=== PATIENT | female | born 1960 | race Caucasian/White ===

== ENCOUNTER 2024-10-03 12:22 | Outpatient (CLI) | payer OTHER ==
--- NOTE | 2024-10-03 15:35 | RADIOLOGY REPORT ---
PROCEDURE: MR MRI THORACIC SPINE INDICATION: SPINAL STENOSIS, THORACIC REGION,SPINAL STENOSIS, Exam Date: 10/03/2024 01:04 PM COMPARISON: None TECHNIQUE: MRI thoracic spine without intravenous contrast. FINDINGS: The thoracic alignment is intact. The vertebral body heights are intact. Postsurgical changes midth oracic spine. There are degenerative endplate changes with anterior and lateral osteophytes mid to lo wer thoracic levels. The thoracic cord signal and contour appear intact. Small disc bulges and facet arthropathy mid to lower thoracic levels. No significant central canal or neural foraminal stenosis. The visualized paraspinal soft tissues are otherwise unremarkable. IMPRESSION: 1. Postsurgical changes midthoracic spine. Mild degenerative disease. No significant central canal o r neural foraminal stenosis. 2. Intact thoracic cord signal. No evidence of cord compression. HS:Y
--- NOTE | 2024-10-03 15:41 | RADIOLOGY REPORT ---
PROCEDURE: MR MRI C SPINE INDICATION: SPINAL STENOSIS, THORACIC REGION,SPINAL STENOSIS, EXAM DATE: 10/03/2024 01:04 PM COMPARISON: None TECHNIQUE: MRI cervical spine without intravenous contrast. FINDINGS: Grade 1 anterolisthesis of C7 on T1. There are degenerative endplate changes with anterior osteophy feliz mid to lower cervical levels. The visualized posterior fossa and craniocervical junction are inta ct. Suspect mild abnormal cord signal C6-7. There is no prevertebral soft tissue swelling. The vis ualized paraspinal soft tissues are otherwise unremarkable. The following axial levels are detailed below: C2-C3: Mild posterior disc osteophyte complex complicated by facet arthropathy associated with mild to moderate right neural foraminal stenosis. No significant central canal stenosis. C3-C4: Mild posterior disc osteophyte complex complicated by facet arthropathy associated with mod erate to severe bilateral neural foraminal stenosis. No significant central canal stenosis. C4-C5: Mild posterior disc osteophyte complex complicated by facet arthropathy associated with mild to moderate bilateral neural foraminal stenosis. No significant central canal stenosis. C5-C6: Moderate posterior disc osteophyte complex complicated by facet arthropathy associated with moderate to severe left neural foraminal stenosis. Central canal measures 9 mm. C6-C7: Moderate posterior disc osteophyte complex complicated by facet arthropathy associated with moderate to severe bilateral neural foraminal stenosis. Central canal measures 7 mm. C7-T1: Moderate posterior disc osteophyte complex complicated by facet arthropathy associated with moderate bilateral neural foraminal stenosis. Central canal measures 8 mm. IMPRESSION: 1. Multilevel degenerative disease. Severe central canal stenosis C6-7. Suspect abnormal cord signal at this level. Moderate central canal stenosis C7-T1 associated with grade 1 anterolisthesis of C7 o n T1. Mild central canal stenosis C5-6. Neural foraminal stenosis as above. HS:Y
--- NOTE | 2024-10-03 16:06 | RADIOLOGY REPORT ---
EXAM: CT CT THORACIC SPINE INDICATION: SPINAL STENOSIS, THORACIC REGION,SPINAL STENOSIS, COMPARISON: MRI thoracic spine from same day TECHNIQUE: Multiple axial CT images of the thoracic spine were obtained using bone algorithm. Axial and coronal reformatting was done. Bone and soft tissue windows were reviewed. Radiation optimization: All CT scans at this facility use at least one of these dose optimization osmel hniques: automated exposure control mA and/or kV adjustment per patient size (includes targeted exam s where dose is matched to clinical indication) or iterative reconstruction. Radiation Dose Information: CT Dose: CTDI volume is 26.94+ 0.34 mGy. Dose-length product is 936.18 mGy*cm FINDINGS: There are 12 rib-bearing thoracic type vertebral bodies. Vertebral body heights are maintained. Alig nment is preserved aside from grade 1 anterolisthesis at T7-T8. There is no acute fracture. There is a left lateral plate at T7-T8 with screws through the T7-T8 vertebral bodies and interbody spacer at T7-T8. No acute fracture. Multilevel thoracic spondylosis with multilevel osteophyte formation and de generative disc space narrowing. No high-grade appearing neural foraminal or spinal stenosis. The pos terior paraspinal soft tissues are intact. Cholelithiasis. Mitral annular calcifications. Mild calcif ied plaque in the thoracic aorta. IMPRESSION: 1. No acute fracture or traumatic malalignment. 2. Left lateral plate at T7-T8 with screws in the T7 and T8 vertebral bodies and interbody spacer at T7-T8. Hardware components are intact. 3. Mild multilevel thoracic spondylosis. 4. Cholelithiasis.
--- NOTE | 2024-10-03 17:24 | RADIOLOGY REPORT ---
Scoliosis spine Date: 10/03/2024 03:16 PM Indication: S/P L-SPINE FUSION,SPINAL STENOSIS,CERVICAL/THORACIC Comparison: None Technique: Standing frontal and lateral views of the thoracolumbar spine were obtained. Findings/Impression: Approximately 4 degrees of levoscoliosis with the apex at T9.
== END 2024-10-03 23:59 | disposition home or self-care (01) ==
LOC: RAD 12:22
PROVIDERS: ATTEND Physician Assistant
DX: M51.35 Other intervertebral disc degeneration, thoracolumbar region (principal); M51.34 Other intervertebral disc degeneration, thoracic region; M48.02 Spinal stenosis, cervical region; M48.04 Spinal stenosis, thoracic region; Z98.1 Arthrodesis status; M47.814 Spondylosis without myelopathy or radiculopathy, thoracic region; R26.9 Unspecified abnormalities of gait and mobility; K80.20 Calculus of gallbladder without cholecystitis without obstruction; I70.0 Atherosclerosis of aorta; M48.05 Spinal stenosis, thoracolumbar region; Q76.3 Congenital scoliosis due to congenital bony malformation
CPT/HCPCS: 72082; 72128; 72141; 72146